=== PATIENT | female | born 1965 | race Caucasian/White ===

== ENCOUNTER 2016-10-23 06:06 | Day surgery (SDC) | payer MEDICAID, OTHER ==
[~2016-10-23] VITALS: Ht 167.6 cm; Wt 90.7 kg
[2016-10-23 06:29] VITALS: O2SAT 99
[2016-10-23] MEDS ORDERED: SEVOFLURANE 15 MIN GAS INH ONE (07:30)
[2016-10-23] MEDS ORDERED: LR 1,000 ML IV.SOLN IV ONE (07:30)
[2016-10-23] MEDS ORDERED: MUPIROCIN 2% TOPICAL OINTMENT 22 GM TP ONE (07:30)
[2016-10-23] MEDS ORDERED: BACITRACIN ZINC 15 GM TOPICAL OINTMENT TP ONE (07:30)
[2016-10-23] MEDS ORDERED: EPINEPHrine 1 MG/ML AMP IVP ONE (07:30)
[2016-10-23] MEDS ORDERED: fentaNYL CITRATE 250 MCG/5 ML AMP IV ONE (07:30)
[2016-10-23] MEDS ORDERED: DEXAMETHASONE SOD PHOSPHATE 4 MG/ML VIAL IVP ONE (07:30)
[2016-10-23] MEDS ORDERED: MIDAZOLAM HCL 5 MG/5 ML VIAL IVP ONE (07:30)
[2016-10-23] MEDS ORDERED: GLYCOPYRROLATE 0.2 MG/ML VIAL IJ ONE (07:30)
[2016-10-23] MEDS ORDERED: LIDOCAINE/EPI 1% 1:100000 20 ML VIAL INJ ONE (07:30)
[2016-10-23] MEDS ORDERED: PROPOFOL 200MG/ 20ML VIAL (DIPRIVAN) IV ONE (07:30)
[2016-10-23] MEDS ORDERED: WATER FOR IRRIGATION,STERILE 1,000 ML IRRIG.SOLN IR ONE (07:30)
[2016-10-23] MEDS ORDERED: ROCURONIUM BROMIDE 10 MG/ML (ZEMURON) IV ONE (07:30)
[2016-10-23] MEDS ORDERED: OXYMETAZOLINE HCL 0.05% NASAL SPRAY NS ONE (07:30)
[2016-10-23] MEDS ORDERED: ONDANSETRON HCL 4 MG/2 ML VIAL IVP ONE (07:30)
[2016-10-23] MEDS ORDERED: NEOSTIGMINE METHYLSULFATE 1 MG/ML, 10 ML VIAL IVP ONE (07:30)
[2016-10-23] MEDS ORDERED: NS IRRIG SOLN 1000 ML IR ONE (07:30)
[2016-10-23] MEDS ORDERED: LR 1,000 ML IV SCH (09:12)
[2016-10-23] MEDS ORDERED: MORPHINE 2 MG/ML INJ. SYRINGE IVP PRN ×3 (09:15)
[2016-10-23] MEDS ORDERED: METOCLOPRAMIDE HCL 10 MG/2 ML VIAL IVP PRN (09:15)
[2016-10-23 10:20] VITALS: BP 136/76; PULSE 71; RESP 16
[2016-10-23] MEDS ORDERED: HYDROcodone/ACETAMIN 5-325 MG TAB (NORCO/ VICODIN) PO PRN (10:30)
[2016-10-23] MEDS ORDERED: HYDROcodone/ACETAMIN 5-325 MG TAB (NORCO/ VICODIN) ONE (10:38)
[2016-10-23] MEDS ORDERED: BUPIVACAINE /PF 0.25% 30 ML VIAL INJ ONE (14:00)
[2016-10-23] MEDS ORDERED: MINERAL OIL 30 ML UDC PO ONE (14:00)
== END 2016-10-23 12:45 | disposition home or self-care (01) ==
LOC: SDS 06:06 → SMU 06:07 → SDS 12:45
PROVIDERS: ATTEND Otolaryngology
DX: J32.9 Chronic sinusitis, unspecified (principal); J34.89 Other specified disorders of nose and nasal sinuses; J34.2 Deviated nasal septum; J34.3 Hypertrophy of nasal turbinates; I10 Essential (primary) hypertension
CPT/HCPCS: 30140; 30520; 31255; 31295; 31296; 31297; 88305; 88311; C1726; J0171; J1100; J2250; J2405; J2704; J2710; J3010; J3490 ×2; J7120